=== PATIENT | female | born 2000 | race Caucasian/White ===

== ENCOUNTER 2018-02-21 04:42 | Emergency (ER) | payer OTHER ==
[~2018-02-21] VITALS: Ht 172.7 cm; Wt 54.9 kg
--- NOTE | 2018-02-21 04:55 | Emergency Room Report ---
History of Present Illness General Chief Complaint: Pain Source: Patient Present Illness HPI Patient presents with complaints of nasal bridge pain after accidental head butt About one hour prior to arrival Patient reports initial bleeding from both nostrils however that has stopped Denies any headache however has pain localized to the nasal bridge denies any difficulty breathing Denies any neck pain Denies any lapse of consciousness pain is 10 out of 10 Allergies: Coded Allergies: No Known Allergies (Unverified , 02/21/18) Patient History Past Medical History: see triage record Pertinent Family History: none Last Menstrual Period: a month ago Now: No Reviewed Nursing Documentation: PMH: Agreed; PSxH: Agreed Review of Systems All Other Systems: negative except mentioned in HPI Physical Exam Vital Signs Date Time Temp Pulse Resp B/P (MAP) Pulse Ox O2 Delivery O2 Flow Rate FiO2 02/21/18 04:45 98.0 86 18 103/62 98 Room Air 98.1 Sp02 EP Interpretation: reviewed, normal General Appearance: mild distress - In acute pain Head: normocephalic, other - Trauma to the nasal bridge Eyes: bilateral eye PERRL, bilateral eye EOMI ENT: other - Swelling to the nasal bridge, no obvious septal hematomas no active bleeding Neck: supple Respiratory: lungs clear Cardiovascular #1: regular rate, rhythm Gastrointestinal: soft, no mass Musculoskeletal: normal inspection, back normal Neurologic: alert, oriented x3, responsive Skin: other - Swelling as above Lymphatic: no adenopathy Medical Decision Making Diagnostic Impression: Primary Impression: Nasal contusion ER Course Given the patient's presentation and history imaging studies were obtained No obvious acute fracture is seen patient appears to have findings consistent with contusion And at this time is stable for continued outpatient follow-up CT/MRI/US Diagnostic Results CT/MRI/US Diagnostic Results : Impression CT facialFINDINGS: Bones: No acute fracture. Extracranial soft tissues: Unremarkable. Sinuses: Unremarkable. No air-fluid levels. Orbits: Unremarkable. IMPRESSION: Normal face. Last Vital Signs Date Time Temp Pulse Resp B/P (MAP) Pulse Ox O2 Delivery O2 Flow Rate FiO2 02/21/18 04:45 98.0 86 18 103/62 98 Room Air 98.1 Status: improved Disposition: HOME, SELF-CARE Condition: Improved Scripts Ibuprofen* (MOTRIN*) 600 Mg Tablet 600 MG ORAL Q8H PRN for For Pain, #20 TAB 0 Refills Prov: Luli Newton DO 02/21/18 Additional Instructions: Patient is provided with the discharge instructions notified to follow up with primary doctor in the next 2-3 days otherwise return to the er with any worsening symptoms. Please note that this report is being documented using [employer] technology. This can lead to erroneous entry secondary to incorrect interpretation by the dictating instrument. Luli Newton DO Feb 21, 2018 04:55
[2018-02-21 04:59] VITALS: BP 106/68
[2018-02-21] MEDS ORDERED: Tylenol #3 tab (300mg/30mg) ORAL ONE (05:00)
--- NOTE | 2018-02-21 05:59 | Diagnostic Imaging Report ---
EXAM: CT Maxillofacial Without Intravenous Contrast. CLINICAL HISTORY: TRAUMA TECHNIQUE: Axial computed tomography images of the face without intravenous contrast. CTDI is 28.3 mGy and DLP is 578 mGy-cm. One or more of the following dose reduction techniques were used: automated exposure control, adjustment of the mA and/or kV according to patient size, use of iterative reconstruction technique. COMPARISON: No relevant prior studies available. FINDINGS: Bones: No acute fracture. Extracranial soft tissues: Unremarkable. Sinuses: Unremarkable. No air-fluid levels. Orbits: Unremarkable. IMPRESSION: Normal face.
[2018-02-21 06:00] VITALS: BP 110/68
[2018-02-21 06:05] VITALS: BP 110/68
[2018-02-21] MEDS ORDERED: IBUPROFEN600 MG ORAL (06:05)
== END 2018-02-21 06:10 | disposition home or self-care (01) ==
LOC: EMR 05:08
DX: S00.33XA Contusion of nose, initial encounter (principal); W51.XXXA Accidental striking against or bumped into by another person, initial encounter; Y92.9 Unspecified place or not applicable
CPT/HCPCS: 70486; 99283